=== PATIENT | female | born 1950 | race Caucasian/White ===

== ENCOUNTER 2016-09-15 11:13 | Emergency (ER) | payer MEDICARE ==
[2016-09-15 11:29] VITALS: BP 135/57
--- NOTE | 2016-09-15 12:15 | RAD ---
HISTORY: Fall, left shoulder pain COMPARISONS: None VIEWS: 3, Frontal internal rotation, external rotation, and outlet views of the left shoulder FINDINGS: BONE DENSITY: Normal. BONES: There is no displaced fracture. JOINTS: There is no arthropathy. ALIGNMENT: There is no dislocation. SOFT TISSUES: Unremarkable. OTHER FINDINGS: None. IMPRESSION: NO ACUTE OSSEOUS INJURY. IF SYMPTOMS PERSIST, RECOMMEND REPEAT IMAGING.
--- NOTE | 2016-09-15 12:15 | RAD ---
HISTORY: Fall, left shoulder pain COMPARISONS: None VIEWS: 3, Frontal internal rotation and external rotation views of the left humerus FINDINGS: BONE DENSITY: Normal. BONES: There is no displaced fracture. JOINTS: There is no arthropathy. ALIGNMENT: There is no dislocation. SOFT TISSUES: Unremarkable. OTHER FINDINGS: None. IMPRESSION: NO ACUTE OSSEOUS INJURY. IF SYMPTOMS PERSIST, RECOMMEND REPEAT IMAGING.
--- NOTE | 2016-09-15 12:15 | RAD ---
HISTORY: Fall, left shoulder pain COMPARISONS: None VIEWS: 2, frontal and frontal oblique views of the left clavicle FINDINGS: BONE DENSITY: Normal. BONES: There is no displaced fracture. JOINTS: There is no arthropathy. ALIGNMENT: There is no dislocation. SOFT TISSUES: Unremarkable. OTHER FINDINGS: None. IMPRESSION: NO ACUTE OSSEOUS INJURY. IF SYMPTOMS PERSIST, RECOMMEND REPEAT IMAGING.
[2016-09-15] MEDS ORDERED: PPD test dose* 5 TU/0.1 ML TEST (*USE PPD ORDER SET*) ONE (13:11)
--- NOTE | 2016-09-27 17:04 | UC ---
Haylee An Anna, scribed for Elana Bowden MD on 09/15/16 at 1142 . Upper Extremity HPI - HPI Summary HPI Summary: Patient is a 66 y/o female coming to [facility] with constant left shoulder pain that began five days ago. She fell into the snow and reports that she did not feel pain upon falling, as the snow cushioned the fall. When she used her arm to push herself up, she felt a ripping pain in her left shoulder. She describes the pain as intermittently sharp, with severity of 10/10 at the peak and radiating up to her neck. She cannot sleep because of the pain. It feels as if the bone is shoving in. The pain was exacerbated three days ago when she dropped something from the table and tried to grab it. She has been taking ibuprofen, but this has only minimally alleviated the pain. - History of Current Complaint Chief Complaint: UCUpperExtremity Stated Complaint: FELL SHOULDER INJURY Time Seen by Provider: 09/15/16 11:32 Hx Obtained From: Patient Onset/Duration: Lasting Days, Still Present, Worse Since - three days ago Pain Intensity: 10 Pain Scale Used: 0-10 Numeric - Allergies/Home Medications Allergies/Adverse Reactions: Allergies Allergy/AdvReac Type Severity Reaction Status Date / Time Penicillins Allergy Airway Verified 09/15/16 11:22 Obstruction Home Medications: Home Medications Guaifenesin/Pseudo 600/60(NF) [Mucinex D 600/60 (NF)] 09/15/16 [History] Ibuprofen [Advil] 400 09/15/16 [History] Loratadine [Claritin 10 MG CAP] 09/15/16 [History] Spiriva Inhaler DEVICE* [Tiotropium Inhaler DEVICE*] DAILY 09/15/16 [History] PMH/Surg Hx/FS Hx/Imm Hx Previously Healthy: Yes - see below Respiratory History Of: Reports: COPD Cancer History Of: Denies: Breast Cancer - Surgical History Surgical History: Yes Surgery Procedure, Year, and Place: BENIGN SKIN BIOPSIES. PT HAS COPD; EMPHYSEMA , DENIES ANY OTHER SX - Family History Known Family History: Positive: Respiratory Disease - Hx emphysema in father, Other - Hx CA in mother - Social History Lives: With Family Alcohol Use: None Substance Use Type: None Smoking Status (MU): Heavy Every Day Tobacco Smoker Review of Systems Constitutional: Negative Skin: Negative Eyes: Negative ENT: Negative Respiratory: Negative Cardiovascular: Negative Gastrointestinal: Vomiting - See HPI Genitourinary: Negative Motor: Negative Neurovascular: Negative Musculoskeletal: Arthralgia, Myalgia Neurological: Negative Psychological: Negative All Other Systems Reviewed And Are Negative: Yes Physical Exam Triage Information Reviewed: Yes Appearance: Well-Nourished Vital Signs: Initial Vital Signs Temp 98.4 F 09/15/16 11:23 Pulse 93 09/15/16 11:23 Resp 20 09/15/16 11:23 BP 135/57 09/15/16 11:23 Pulse Ox 97 09/15/16 11:23 Vital Signs Reviewed: Yes Eye Exam: Normal ENT Exam: Normal Neck exam: Normal, Other - No adenopathy appreciated Respiratory Exam: Normal Respiratory: Positive: Chest non-tender, Lungs clear, Normal breath sounds, No respiratory distress, No accessory muscle use Cardiovascular Exam: Normal Cardiovascular: Positive: RRR, No Murmur, Pulses Normal, Brisk Capillary Refill Abdominal Exam: Normal Abdomen Description: Positive: Nontender, No Organomegaly, Soft Bowel Sounds: Positive: Present Musculoskeletal Exam: Other - Left shoulder tenderness, w/o specific point sophia tender. FROM incomplete, ra abduction. Distal NVI with good R / U pulses. CR good. Staightens elbow and moves hand ok. Ax n. sens LT present. Musculoskeletal: Positive: Strength Intact Neurological Exam: Normal - nonfocal, grossly intact Psychological Exam: Normal - Conversing easily and appropriately Skin Exam: Normal - No visible or reported rash Diagnostics - Radiology Left Shoulder XR Xray Interpretation: No Acute Changes Radiology Interpretation Completed By: Radiologist - IMPRESSION: NO ACUTE OSSEOUS INJURY. IF SYMPTOMS PERSIST, RECOMMEND REPEAT IMAGING. Left Clavicle XR Xray Interpretation: No Acute Changes Radiology Interpretation Completed By: Radiologist - IMPRESSION: NO ACUTE OSSEOUS INJURY. IF SYMPTOMS PERSIST, RECOMMEND REPEAT IMAGING. Left Humerus XR Xray Interpretation: No Acute Changes Radiology Interpretation Completed By: Radiologist - IMPRESSION: NO ACUTE OSSEOUS INJURY. IF SYMPTOMS PERSIST, RECOMMEND REPEAT IMAGING. Re-Evaluation - Re-Evaluation First Eval Re-Evaluation Time: 12:48 Comment: Discussed results of XRs and plan of care. Patient is agreeable with plan of care. Upper Extremity Course/Dx - Course Course Of Treatment: Declines analgesics. No new problems in CCC. Considered below differential diagnoses. Reviewed Xrays w/ pt, and need for f/u. Sling as needed for comfort. Likely acute sprain in setting of chronic inflammation. F/u PCP. Referral Dr. Soriano (ortho). Questions answered as posed to the best of my ability. - Differential Dx/Diagnosis Provider Diagnoses: Shoulder sprain Discharge - Discharge Plan Condition: Stable Disposition: HOME Prescriptions: traMADol TAB* [Ultram*] 50 mg PO Q6HR PRN #20 tab MDD 4 PRN Reason: Pain Patient Education Materials: Ibuprofen (By mouth), Shoulder Sprain (ED) Referrals: Percy Bryan [Primary Care Provider] - Palmer Soriano MD [Medical Doctor] - Additional Instructions: Please follow up with your primary care provider. Follow up orthopedic surgeon this week, if possible. Sling as needed for comfort. Seek medical attention for worsening problems in the meantime. The documentation as recorded by the Haylee cazares Anna accurately reflects the service I personally performed and the decisions made by me, Elana Bowden MD.
== END 2016-09-15 13:20 | disposition home or self-care (01) ==
LOC: UCEAST 11:13
DX: S43.402A Unspecified sprain of left shoulder joint, initial encounter (principal); W19.XXXA Unspecified fall, initial encounter; Y93.9 Activity, unspecified; Y92.9 Unspecified place or not applicable; J43.9 Emphysema, unspecified; F17.210 Nicotine dependence, cigarettes, uncomplicated; Z88.0 Allergy status to penicillin
CPT/HCPCS: 99212; G0463